=== PATIENT | male | born 1995 ===

== ENCOUNTER 2025-01-06 07:22 | Day surgery (SDC) | payer MEDICAID ==
[~2025-01-06 07:22] MED LIST: Sodium Chloride 0.9% 10 ML Syringe FLUSH PRN; Sodium Chloride 0.9% 10 ML Syringe FLUSH SCH
[2025-01-06] MEDS: Lactated Ringers 1,000 ML IV SCH (07:45)
[2025-01-06] MEDS ORDERED: dexmedeTOMIDine HCl 200 MCG/2 ML SDV ONE (08:03)
[2025-01-06] MEDS ORDERED: propofoL 500 MG/50 ML 50 ML ONE (08:54)
[2025-01-06] MEDS ORDERED: Lidocaine 1% 4 ML ONE (08:55)
== END 2025-01-06 10:30 | disposition home or self-care (01) ==
LOC: JD.SDS 07:22
PROVIDERS: ATTEND Surgery
DX: D12.7 Benign neoplasm of rectosigmoid junction (principal); K62.5 Hemorrhage of anus and rectum
CPT/HCPCS: 45385; J2003; J2704; J7120; 00811